=== PATIENT | male | born 1995 | race Two or more races ===

== ENCOUNTER 2018-11-05 10:47 | Day surgery (SDC) | payer OTHER | END 2018-11-05 14:35 | disposition home or self-care (01) | LOC: CIR.AMB 10:47 | DX: S52.531A Colles' fracture of right radius, initial encounter for closed fracture (principal) ==

== ENCOUNTER 2024-05-13 07:04 | Day surgery (SDC) | payer OTHER ==
[2024-05-13] MEDS ORDERED: CEFAZOLIN SODIUM 1,000 MG VIAL IV ONE (11:00)
== END 2024-05-13 14:55 | disposition home or self-care (01) ==
LOC: CIR.AMB 07:04
PROVIDERS: ATTEND Orthopaedic Surgery Hand Surgery
DX: S63.111A Subluxation of metacarpophalangeal joint of right thumb, initial encounter (principal)